=== PATIENT | female | born 1945 | race Caucasian/White ===

== ENCOUNTER 2017-06-06 05:26 | Inpatient (IN) | payer MEDICARE, BC ==
[2017-06-06 08:04] VITALS: RESP 18; TEMP 97.1; BMI 22.0
[2017-06-06 09:15] LABS: Anion Gap 11 mmol/L; Basophils # (A) 0.1 k/uL (0-0.2); Basophils % (A) 1 %; Blood Urea Nitrogen 9 mg/dL (7-17); CH 30.4; CHCM 33.9; Calcium 9.3 mg/dL (8.4-10.2); Carbon Dioxide 27 mmol/L (22-30); Chloride 103 mmol/L (98-107); Eosinophils % (A) 0 %; Glucose 155 mg/dL (74-99); HDW 2.34; HGB 14.4 gm/dL (11.4-16.0); Luc # (Auto) 0.21; Luc % (Auto) 2; Lymphocytes # (A) 1.1 k/uL (1.0-4.8); Lymphocytes % (A) 13 %; MCH 30.8 pg (25.0-35.0); MCHC 34.3 g/dL (31.0-37.0); MCV 89.9 fL (80.0-100.0); Mean Platelet Volume 7.8; Monocytes # (A) 0.4 k/uL (0-1.0); Monocytes % (A) 4 %; Neutrophils # (A) 6.8 k/uL (1.3-7.7); Neutrophils % (A) 80 %; Non-African American GFR(MDRD) >60 (>60 ml/min/1.73 sqM); Potassium 4.1 mmol/L (3.5-5.1); RBC 4.67 m/uL (3.80-5.40); RDW 11.9 % (11.5-15.5); Sodium 141 mmol/L (137-145); WBC 8.5 k/uL (3.8-10.6); WBC (Perox) 8.51
[2017-06-06] MEDS ORDERED: APIXABAN 5 MG TAB PO SCH (10:30)
[2017-06-06] MEDS ORDERED: METOPROLOL TARTRATE 25 MG TAB PO SCH ×2 (10:30→16:00)
[2017-06-06] MEDS ORDERED: amLODIPine 10 MG TAB PO SCH (10:30)
[2017-06-06] MEDS ORDERED: PANTOPRAZOLE 40 MG TABLET PO SCH ×2 (10:30→17:30)
[2017-06-06 10:59] VITALS: BP 132/64; PULSE 64
--- NOTE | 2017-06-06 12:04 | P.HPIM ---
History of Present Illness H&P Date: 06/06/17 (Discharge summary) Chief Complaint: Palpitations This is a 72-year-old female with history of atrial fibrillation currently maintained on ELIQUIS and beta angela for rate control come to the hospital with the sudden onset palpitations. Patient denies having any associated chest pain patient was transferred from [facility] at that time Patient spontaneously converted to normal sinus rhythm. Patient denies having any diarrhea recent change in diet medications prior to this episode Patient was last hospitalized about one year ago States that she sees Dr. Hatch denies having any history of heart failure has had a stress test over a year ago Patient is active denies having an intermittent episodes of palpitations in the last 1 year Patient was noted to have hypokalemia at [facility] today potassium is 4.1 Denies having any headaches blurry vision nausea vomiting diarrhea On ambulation patient's heart rate appropriately improved from 50 bpm to 70 bpm Appears to be normal sinus rhythm Review of Systems All systems: negative (Noted in HPI) Past Medical History Past Medical History: Atrial Fibrillation, GERD/Reflux, Hypertension Additional Past Medical History / Comment(s): perferated colon; anxiety; low sodium almost had seizure in [place] last july History of Any Multi-Drug Resistant Organisms: None Reported Additional Past Surgical History / Comment(s): bowel repair-perf colon Past Anesthesia/Blood Transfusion Reactions: Previous Problems w/ Anesthesia Additional Past Anesthesia/Blood Transfusion Reaction / Comment(s): difficulty waking up; problem bringing back when having colon surgery Past Psychological History: Anxiety Smoking Status: Never smoker - Past Family History Mother Additional Family Medical History / Comment(s): from [place] Father Family Medical History: Diabetes Mellitus Medications and Allergies Home Medications Medication Instructions Recorded Confirmed Type ALPRAZolam [Xanax] 0.25 mg PO BID PRN 06/06/17 06/06/17 History Apixaban [Eliquis] 5 mg PO BID 06/06/17 06/06/17 History Calcium Carbonate [Calcium] 600 mg PO BID 06/06/17 06/06/17 History Magnesium Oxide [Mag-Ox] 400 mg PO DAILY 06/06/17 06/06/17 History Metoprolol Tartrate 25 mg PO BID 06/06/17 06/06/17 History Multivitamins, Thera [Multivitamin 1 tab PO DAILY 06/06/17 06/06/17 History (formulary)] Omeprazole [PriLOSEC] 20 mg PO DAILY 06/06/17 06/06/17 History amLODIPine [Norvasc] 10 mg PO DAILY 06/06/17 06/06/17 History Allergies Allergy/AdvReac Type Severity Reaction Status Date / Time ciprofloxacin [From Cipro] Allergy Swelling Verified 06/06/17 09:57 sulfamethoxazole Allergy Swelling Verified 06/06/17 09:57 [From Bactrim] trimethoprim [From Bactrim] Allergy Swelling Verified 06/06/17 09:57 Physical Exam Vitals: Vital Signs Temp Pulse Resp BP Pulse Ox 06/06/17 10:58 97.1 F L 64 18 132/64 94 L 06/06/17 07:59 97.1 F L 61 18 140/63 96 06/06/17 07:45 97.1 F L 61 18 140/63 96 Intake and Output 06/05/17 06/06/17 06/06/17 22:59 06:59 14:59 Intake Total 360 Balance 360 Intake: Oral 360 Other: Weight 58.2 kg Patient Weight 06/07/17 06:59 Weight 58.2 kg Physical exam Gen. appearance oriented 3 in no distress Neck is supple no JVD Lungs good air entry clear to auscultation no rhonchi or wheezing Heart S1-S2 heard regular rate and rhythm no murmurs appreciated Abdomen is soft nontender no organomegaly bowel sounds are intact Neurologically cranial nerves II-12 grossly intact no focal motor or sensory deficits noted Skin no abnormalities appreciated Results CBC & Chem 7: 06/06/17 08:49 06/06/17 08:49 Labs: Abnormal Lab Results - Last 24 Hours (Table) 06/06/17 Range/Units 08:49 Glucose 155 H (74-99) mg/dL Thrombosis Risk Factor Assmnt - Choose All That Apply Each Risk Factor Represents 2 Points: Age 61-74 years Thrombosis Risk Factor Assessment Total Risk Factor Score: 2 Thrombosis Risk Factor Assessment Level: Low Risk Assessment and Plan Plan: #1 proximal atrial fibrillation known history with rapid ventricular rate present on admission #2 essential hypertension Plan Patient is currently in sinus rhythm patient will be discharged home to follow up with Dr. Hatch in 1 week patient may benefit from undergoing a stress test at that time if that is inciting event however patient did have hypokalemia prior to admission here. Patient was made to ambulate no recurrence of symptoms or chest pain and hence will be discharged home in a stable condition no change in medications.
--- NOTE | 2017-06-06 12:20 | P.CRDCN ---
History of Present Illness Consult date: 06/06/17 Reason for Consult (text): atrial fibrillation w/RVR Chief complaint: rapid, irregular heart beat History of present illness: This is a pleasant 72-year-old female patient who follows with Dr. Hatch in the office. She has history of episode of paroxysmal atrial fibrillation about a year ago, started on Eliquis at that time, GERD, hypertension and breast nodule. Presented to the emergency room department at [place] after waking up around 3 in the morning and noticing her heart racing and was irregular. Patient was found to be hypokalemic which was replaced at [facility]. He was found to be in atrial fibrillation with rapid ventricular response and started on a Cardizem drip. Just prior to arriving here at [facility] patient converted to sinus rhythm and shortly after rising Cardizem drip was discontinued. Patient is maintaining sinus rhythm. Her potassium has normalized at 4.1. All other labs are unremarkable except for a glucose of 155. She has been resumed on her home medications including Norvasc 10 mg by mouth daily,Eliquis 5 mg by mouth twice a day and metoprolol titrate 25 mg by mouth twice a day. Examination, she is resting comfortably in bed. She denies any complaints of palpitations or feeling her heart racing since arrival here. She's had no chest discomfort, dizziness, lightheadedness, diaphoresis or shortness of breath. Past Medical History Past Medical History: Atrial Fibrillation, GERD/Reflux, Hypertension Additional Past Medical History / Comment(s): perferated colon; anxiety; low sodium almost had seizure in [place] last july History of Any Multi-Drug Resistant Organisms: None Reported Additional Past Surgical History / Comment(s): bowel repair-perf colon Past Anesthesia/Blood Transfusion Reactions: Previous Problems w/ Anesthesia Additional Past Anesthesia/Blood Transfusion Reaction / Comment(s): difficulty waking up; problem bringing back when having colon surgery Past Psychological History: Anxiety Smoking Status: Never smoker - Past Family History Mother Additional Family Medical History / Comment(s): from [place] Father Family Medical History: Diabetes Mellitus Medications and Allergies Home Medications Medication Instructions Recorded Confirmed Type ALPRAZolam [Xanax] 0.25 mg PO BID PRN 06/06/17 06/06/17 History Apixaban [Eliquis] 5 mg PO BID 06/06/17 06/06/17 History Calcium Carbonate [Calcium] 600 mg PO BID 06/06/17 06/06/17 History Magnesium Oxide [Mag-Ox] 400 mg PO DAILY 06/06/17 06/06/17 History Metoprolol Tartrate 25 mg PO TID 06/06/17 06/06/17 History Multivitamins, Thera [Multivitamin 1 tab PO DAILY 06/06/17 06/06/17 History (formulary)] Omeprazole [PriLOSEC] 20 mg PO DAILY 06/06/17 06/06/17 History amLODIPine [Norvasc] 10 mg PO DAILY 06/06/17 06/06/17 History Allergies Allergy/AdvReac Type Severity Reaction Status Date / Time ciprofloxacin [From Cipro] Allergy Swelling Verified 06/06/17 09:57 sulfamethoxazole Allergy Swelling Verified 06/06/17 09:57 [From Bactrim] trimethoprim [From Bactrim] Allergy Swelling Verified 06/06/17 09:57 Physical Exam Vitals: Vital Signs Temp Pulse Resp BP Pulse Ox 06/06/17 10:58 97.1 F L 64 18 132/64 94 L 06/06/17 07:59 97.1 F L 61 18 140/63 96 06/06/17 07:45 97.1 F L 61 18 140/63 96 Intake and Output 06/05/17 06/06/17 06/06/17 22:59 06:59 14:59 Intake Total 360 Balance 360 Intake: Oral 360 Other: Weight 58.2 kg Patient Weight 06/07/17 06:59 Weight 58.2 kg PHYSICAL EXAMINATION: HEENT: Head is atraumatic, normocephalic. Pupils equal, round. Neck is supple. There is no elevated jugular venous pressure. HEART EXAMINATION: Heart sounds regular, S1 and S2 normal. No murmur or gallop heard. CHEST EXAMINATION: Lungs are clear to auscultation and precussion. No chest wall tenderness is noted on palpation or with deep breathing. ABDOMEN: Soft, nontender. Bowel sounds are heard. No organomegaly noted. EXTREMITIES: 2+ peripheral pulses with no evidence of peripheral edema and no calf tenderness noted. NEUROLOGIC patient is awake, alert and oriented x3. . Results 06/06/17 08:49 06/06/17 08:49 CBC 06/06/17 Range/Units 08:49 WBC 8.5 (3.8-10.6) k/uL RBC 4.67 (3.80-5.40) m/uL Hgb 14.4 (11.4-16.0) gm/dL Hct 42.0 (34.0-46.0) % Plt Count 273 (150-450) k/uL Comprehensive Metabolic Panel 06/06/17 Range/Units 08:49 Sodium 141 (137-145) mmol/L Potassium 4.1 (3.5-5.1) mmol/L Chloride 103 (98-107) mmol/L Carbon Dioxide 27 (22-30) mmol/L BUN 9 (7-17) mg/dL Creatinine 0.71 (0.52-1.04) mg/dL Glucose 155 H (74-99) mg/dL Calcium 9.3 (8.4-10.2) mg/dL Current Medications Generic Name Dose Route Start Last Admin Trade Name Freq PRN Reason Stop Dose Admin Amlodipine Besylate 10 mg 06/06/17 10:30 06/06/17 10:53 Norvasc PO 10 mg DAILY ASHLEY Administration Apixaban 5 mg 06/06/17 10:30 06/06/17 10:53 Eliquis PO 5 mg BID ASHLEY Administration Metoprolol Tartrate 25 mg 06/06/17 10:30 06/06/17 10:53 Lopressor PO 25 mg BID ASHLEY Administration Pantoprazole Sodium 40 mg 06/06/17 17:30 Protonix PO AC-SUPPER ASHLEY Intake and Output 06/05/17 06/06/17 06/06/17 22:59 06:59 14:59 Intake Total 360 Balance 360 Intake: Oral 360 Other: Weight 58.2 kg Patient Weight 06/07/17 06:59 Weight 58.2 kg 06/06/17 08:49 06/06/17 08:49 Assessment and Plan Plan: Assessment and plan #1 paroxysmal atrial fibrillation with rapid ventricular response, currently maintaining sinus rhythm #2 hypokalemia, resolved #3 hypertension #4 GERD From cardiology perspective, patient may be discharged home today she will follow-up with Dr. Hatch in [place] on June 12 at 1:45 PM. We will increase metoprolol to 25 mg by mouth 3 times a day. TARP REPAIRER note has been reviewed, I agree with a documented findings and plan of care. Patient was seen and examined.
== END 2017-06-06 13:16 | disposition home or self-care (01) | DRG 310 ==
LOC: 6SEL 07:54
PROVIDERS: ADMIT Hospitalist; ATTEND Hospitalist
DX: I48.0 Paroxysmal atrial fibrillation (principal); I10 Essential (primary) hypertension; E87.6 Hypokalemia; Z79.01 Long term (current) use of anticoagulants; Z79.899 Other long term (current) drug therapy; K21.9 Gastro-esophageal reflux disease without esophagitis; F41.9 Anxiety disorder, unspecified; Z88.1 Allergy status to other antibiotic agents; Z88.2 Allergy status to sulfonamides; Z88.8 Allergy status to other drugs, medicaments and biological substances
CPT/HCPCS: 80048; 83735; 85025

== ENCOUNTER 2023-05-19 12:32 | Inpatient (IN) | payer MEDICARE, BC ==
[2023-05-19] MEDS ORDERED: SODIUM CHLORIDE 0.9% 500 ML 500 ML IV STA (12:43)
[2023-05-19] MEDS ORDERED: DILTIAZEM 125 MG in SODIUM CHLORIDE 0.9% 100 ML IV SCH ×2 (13:00→14:32)
[2023-05-19] MEDS ORDERED: NALOXONE 0.4 MG/ML 1 ML VIAL IV PRN (13:05)
[2023-05-19 13:09] LABS: Basophils # (A) 0.1 k/uL (0-0.2); Basophils % (A) 1 %; Eosinophils # (A) 0.1 k/uL (0-0.7); Eosinophils % (A) 1 %; HCT 43.1 % (34.0-46.0); HGB 15.3 gm/dL (11.4-16.0); Lymphocytes # (A) 2.6 k/uL (1.0-4.8); Lymphocytes % (A) 34 %; MCH 32.3 pg (25.0-35.0); MCHC 35.5 g/dL (31.0-37.0); MCV 90.9 fL (80.0-100.0); Mean Platelet Volume 10.1; Monocytes # (A) 0.6 k/uL (0-1.0); Monocytes % (A) 8 %; Neutrophils # (A) 4.3 k/uL (1.3-7.7); Neutrophils % (A) 55 %; Platelet Count 172 k/uL (150-450); RBC 4.74 m/uL (3.80-5.40); RDW 11.5 % (11.5-15.5); WBC 7.8 k/uL (3.8-10.6)
--- NOTE | 2023-05-19 13:14 | ED ---
General Adult HPI - General Chief complaint: Chest Pain Stated complaint: AFib Time Seen by Provider: 05/19/23 12:41 Source: patient, EMS Mode of arrival: EMS - History of Present Illness Initial comments: This is a 78-year-old female that was sent in from [facility] emergency department for atrial fibrillation with RVR. The patient was noted that her palpitations started on Friday and became worse today so she went to the outside facility. The patient was found to be in atrial fibrillation with RVR and was started on a Cardizem drip and transferred here for further workup and evaluation by cardiology. On evaluation, the patient was resting in bed comfortably without any acute distress, shortness of breath or chest pain. - Related Data Home Medications Medication Instructions Recorded Confirmed ALPRAZolam [Xanax] 0.25 mg PO BID PRN 06/06/17 06/06/17 Apixaban [Eliquis] 5 mg PO BID 06/06/17 06/06/17 Calcium Carbonate [Calcium] 600 mg PO BID 06/06/17 06/06/17 Magnesium Oxide [Mag-Ox] 400 mg PO DAILY 06/06/17 06/06/17 Metoprolol Tartrate 25 mg PO TID 06/06/17 06/06/17 Multivitamins, Thera [Multivitamin 1 tab PO DAILY 06/06/17 06/06/17 (formulary)] Omeprazole [PriLOSEC] 20 mg PO DAILY 06/06/17 06/06/17 amLODIPine [Norvasc] 10 mg PO DAILY 06/06/17 06/06/17 Previous Rx's Medication Instructions Recorded Metoprolol Tartrate [Lopressor] 25 mg PO TID #270 tablet 06/06/17 Allergies Allergy/AdvReac Type Severity Reaction Status Date / Time ciprofloxacin [From Cipro] Allergy Swelling Verified 05/19/23 12:39 sulfamethoxazole Allergy Swelling Verified 05/19/23 12:39 [From Bactrim] trimethoprim [From Bactrim] Allergy Swelling Verified 05/19/23 12:39 Review of Systems ROS Statement: Those systems with pertinent positive or pertinent negative responses have been documented in the HPI. ROS Other: All systems not noted in ROS Statement are negative. Past Medical History Past Medical History: Atrial Fibrillation, GERD/Reflux, Hypertension Additional Past Medical History / Comment(s): perferated colon; anxiety; low sodium almost had seizure in [place] last july History of Any Multi-Drug Resistant Organisms: None Reported Additional Past Surgical History / Comment(s): bowel repair-perf colon Past Anesthesia/Blood Transfusion Reactions: Previous Problems w/ Anesthesia Additional Past Anesthesia/Blood Transfusion Reaction / Comment(s): difficulty waking up; problem bringing back when having colon surgery Past Psychological History: Anxiety - Past Family History Mother Additional Family Medical History / Comment(s): from [place] Father Family Medical History: Diabetes Mellitus General Exam Limitations: no limitations General appearance: alert, in no apparent distress Head exam: Present: atraumatic, normocephalic, normal inspection Eye exam: Present: normal appearance, PERRL Pupils: Present: normal accommodation ENT exam: Present: normal exam, normal oropharynx, mucous membranes moist Neck exam: Present: normal inspection, full ROM Respiratory exam: Present: normal lung sounds bilaterally Cardiovascular Exam: Present: tachycardia, irregular rhythm GI/Abdominal exam: Present: soft, normal bowel sounds Extremities exam: Present: normal inspection, full ROM Back exam: Present: normal inspection, full ROM Neurological exam: Present: alert, oriented X3, CN II-XII intact Psychiatric exam: Present: normal affect, normal mood Skin exam: Present: warm, dry Course Vital Signs 05/19/23 12:35 Temperature 98.1 F Pulse Rate 150 H Respiratory 20 Rate Blood Pressure 156/101 O2 Sat by Pulse 100 Oximetry EKG Findings - EKG Comments: EKG Findings:: An EKG was obtained and was interpreted by myself showing a rate of 115, QRS duration of 80, QTC of 392. This EKG showed an atrial fibrillation with RVR consistent with her previous history. There was however no ST segment elevation or depression noted. Medical Decision Making - Medical Decision Making Was pt. sent in by a medical professional or institution (, PA, BRAILLE DUPLICATING MACHINE OPERATOR, urgent care, hospital, or snf...) When possible be specific @ -Yes, [facility] Did you speak to anyone other than the patient for history (EMS, parent, family, police, friend...)? What history was obtained from this source @ -No Did you review nursing and triage notes (agree or disagree)? Why? @ -I reviewed and agree with nursing and triage notes Were old charts reviewed (outside hosp., previous admission, EMS record, old EKG, old radiological studies, urgent care reports/EKG's, snf records)? Report findings @ -Yes, the chart the outside facility was reviewed. Differential Diagnosis (chest pain, altered mental status, abdominal pain women, abdominal pain men, vaginal bleeding, weakness, fever, dyspnea, syncope, headache, dizziness, GI bleed, back pain, seizure, CVA, palpatations, mental health)? @ -Atrial fibrillation with RVR, ACS, pneumonia EKG interpreted by me (3pts min.). @ -As above X-rays interpreted by me (1pt min.). @ -None done CT interpreted by me (1pt min.). @ -None done U/S interpreted by me (1pt. min.). @ -None done What testing was considered but not performed or refused? (CT, X-rays, U/S, labs)? Why? @ -X-ray was performed at the outside facility. What meds were considered but not given or refused? Why? @ -None Did you discuss the management of the patient with other professionals (professionals i.e. , PA, BRAILLE DUPLICATING MACHINE OPERATOR, lab, RT, psych nurse, certified social workers in health care, lining cutter, teacher, environmental protection officer, correctional case manager)? Give summary @ -Yes, admitting physician was contacted regarding patient admission Was smoking cessation discussed for >3mins.? @ -No Was critical care preformed (if so, how long)? @ -Yes, see above Were there social determinants of health that impacted care today? How? (Homelessness, low income, unemployed, alcoholism, drug addiction, transportation, low edu. Level, literacy, decrease access to med. care, senior living, rehab)? @ -No Was there de-escalation of care discussed even if they declined (Discuss DNR or withdrawal of care, Hospice)? DNR status @ -No What co-morbidities impacted this encounter? (DM, HTN, Smoking, COPD, CAD, Cancer, CVA, ARF, Chemo, Hep., AIDS, mental health diagnosis, sleep apnea, morbid obesity)? @ -Atrial fibrillation Was patient admitted / discharged? Hospital course, mention meds given and route, prescriptions, significant lab abnormalities, going to OR and other pertinent info. @ -The patient was seen and evaluated emergency department. Physical exam, the patient was resting in bed without any acute distress. Vital signs did show atrial fibrillation with RVR and the patient was currently on Cardizem. The patient was restarted on Cardizem when she arrived and repeat labs were obtained. The patient remained stable and will be admitted for further workup and evaluation with cardiology on consult. The patient's primary care physician does not admit to this facility therefore the patient was admitted to Dr. Pool and SMOOTH who was city call. The patient was agreeable to this plan and was admitted in stable condition. Undiagnosed new problem with uncertain prognosis? @ -No Drug Therapy requiring intensive monitoring for toxicity (Heparin, Nitro, Insulin, Cardizem)? @ -Cardizem Were any procedures done? @ -No Diagnosis/symptom? @ -Atrial fibrillation with RVR Acute, or Chronic, or Acute on Chronic? @ -Acute Uncomplicated (without systemic symptoms) or Complicated (systemic symptoms)? @ -Complicated Side effects of treatment? @ -No Exacerbation, Progression, or Severe Exacerbation? @ -No Poses a threat to life or bodily function? How? (Chest pain, [place], [place], pneumonia, PE, COPD, DKA, ARF, appy, cholecystitis, CVA, Diverticulitis, Homicidal, Suicidal, threat to staff... and all critical care pts) @ -Yes, continued arrhythmia can lead to permanent damage and possible . Critical Care Time Critical Care Time: Yes Total Critical Care Time: 31 Disposition Clinical Impression: Atrial fibrillation with RVR Disposition: ADMITTED IP TO THIS [facility] Condition: Stable Is patient prescribed a controlled substance at d/c from ED?: No Referrals: Quentin Giordano MD [Primary Care Provider] - 1-2 days Time of Disposition: 13:00 Decision to Admit Reason: Admit from EC Decision Date: 05/19/23 Decision Time: 13:00
[2023-05-19] MEDS ORDERED: METOPROLOL TARTRATE 12.5 MG TAB PO SCH (14:06)
[2023-05-19 14:12] LABS: ALT 25 U/L (4-34); AST 30 U/L (14-36); African American GFR (CKD) >90 (>60 ml/min/1.73 sqM); Albumin 4.2 g/dL (3.5-5.0); Alkaline Phosphatase 87 U/L (38-126); Anion Gap 11 mmol/L; Blood Urea Nitrogen 12 mg/dL (7-17); Calcium 9.5 mg/dL (8.4-10.2); Carbon Dioxide 23 mmol/L (22-30); Chloride 105 mmol/L (98-107); Glucose 110 mg/dL (74-99); Magnesium 1.8 mg/dL (1.6-2.3); Non-African American GFR(CKD) 86 (>60 ml/min/1.73 sqM); Potassium 3.7 mmol/L (3.5-5.1); Sodium 139 mmol/L (137-145); Total Bilirubin 0.8 mg/dL (0.2-1.3); Total Protein 7.2 g/dL (6.3-8.2)
[2023-05-19 14:20] LABS: NT-Pro-B-Type Natriuretic Pept 2280 pg/mL
--- NOTE | 2023-05-19 14:25 | P.HPIM ---
History of Present Illness This is a pleasant 78 years old female with multiple past medical history including atrial fibrillation on a blood thinner at home, hypertension, anxiety Patient presents because of palpitation and lightheadedness since Friday She denies chest pain or dyspnea or coughing. Denies any GI or urinary symptoms. She has some loose stool about 3 times yesterday but she does not describe it as diarrhea. She denies headache dizziness weakness or numbness. No blurred vision. Her fifth hand is Dr. Hatch and she was taken her on liquids at home for her A. fib. She denies smoking alcohol or illicit drugs On admission she was tachycardic 150 CBC is unremarkable BMP and liver enzymes and troponin are unremarkable. ProBNP 2280. EKG showing A. fib with RVR at 115 Review of Systems Review of systems CONSTITUTIONAL: No fever, no malaise, no fatigue. HEENT: No recent visual problems or hearing problems. Denied any sore throat. CARDIOVASCULAR: No orthopnea, PND, no palpitations, no syncope. PULMONARY: No shortness of breath, no cough, no hemoptysis. GASTROINTESTINAL: No diarrhea, no nausea, no vomiting, no abdominal pain. Normoactive bowel sounds. NEUROLOGICAL: No headaches, no weakness, no numbness. HEMATOLOGICAL: Denies any bleeding or petechiae. GENITOURINARY: Denies any burning micturition, frequency, or urgency. MUSCULOSKELETAL/RHEUMATOLOGICAL: Denies any joint pain, swelling, or any muscle pain. ENDOCRINE: Denies any polyuria or polydipsia. Past Medical History Past Medical History: Atrial Fibrillation, GERD/Reflux, Hypertension Additional Past Medical History / Comment(s): perferated colon; anxiety; low sodium almost had seizure in [place] last july History of Any Multi-Drug Resistant Organisms: None Reported Additional Past Surgical History / Comment(s): bowel repair-perf colon Past Anesthesia/Blood Transfusion Reactions: Previous Problems w/ Anesthesia Additional Past Anesthesia/Blood Transfusion Reaction / Comment(s): difficulty waking up; problem bringing back when having colon surgery Past Psychological History: Anxiety - Past Family History Mother Additional Family Medical History / Comment(s): from [place] Father Family Medical History: Diabetes Mellitus Medications and Allergies Home Medications Medication Instructions Recorded Confirmed Type Apixaban [Eliquis] 5 mg PO BID 06/06/17 05/19/23 History amLODIPine [Norvasc] 10 mg PO DAILY 06/06/17 05/19/23 History Anastrozole [Arimidex] 1 mg PO DAILY 05/19/23 05/19/23 History Fluticasone Nasal [place] [Flonase 2 spray EA NOSTRIL DAILY PRN 05/19/23 05/19/23 History Nasal [place]] Metoprolol Tartrate [Lopressor] 37.5 mg PO BID 05/19/23 05/19/23 History Allergies Allergy/AdvReac Type Severity Reaction Status Date / Time ciprofloxacin [From Cipro] Allergy Swelling Verified 05/19/23 13:33 sulfamethoxazole Allergy Swelling Verified 05/19/23 13:33 [From Bactrim] trimethoprim [From Bactrim] Allergy Swelling Verified 05/19/23 13:33 Physical Exam Vitals: Vital Signs Temp Pulse Resp BP Pulse Ox 05/19/23 12:35 98.1 F 150 H 20 156/101 100 Intake and Output 05/18/23 05/19/23 05/19/23 22:59 06:59 14:59 Other: Weight 57.153 kg GENERAL: The patient is alert and oriented x3, not in any acute distress. Well developed, well nourished. HEENT: Pupils are round and equally reacting to light. EOMI. No scleral icterus. No conjunctival pallor. Normocephalic, atraumatic. No pharyngeal erythema. No thyromegaly. CARDIOVASCULAR: S1 and S2 present. No murmurs, rubs, or gallops. PULMONARY: Chest is clear to auscultation, no wheezing , no crackles. ABDOMEN: Soft, nontender, nondistended, normoactive bowel sounds. No palpable organomegaly. MUSCULOSKELETAL: No joint swelling or deformity. EXTREMITIES: No cyanosis, clubbing, or pedal edema. NEUROLOGICAL: Gross neurological examination did not reveal any focal deficits. SKIN: No rashes. no petechiae. Results CBC & Chem 7: 05/19/23 12:56 05/19/23 13:26 Assessment and Plan Assessment: Atrial fibrillation with RVR Hypertension History of GERD Anxiety Plan: Continue Cardizem drip Continue on eliquis Cardiology consult Labs and medication were reviewed.. Continue same treatment. Continue with symptomatic treatment. Resume home medication. Monitor labs and vitals. DVT and GI prophylaxis. Further recommendations as per clinical course of the patient DVT prophylaxis: eliquis GI Prophylaxis: Pepcid Prognosis is guarded
--- NOTE | 2023-05-19 14:35 | P.CRDCN ---
History of Present Illness Consult date: 05/19/23 Consult reason: atrial fibrillation (With RVR) History of present illness: History of present illness: This is a 69-year-old female patient Dr. Perez a past medical history of carotid atherosclerosis, paroxysmal atrial fibrillation, valvular heart disease as well as pulmonary hypertension, hypertension, dyslipidemia. Patient denies having any previous ablation or cardioversion done. She's been taking all of her medications as directed. She states she started feeling atrial fibrillation on Friday with palpitations and some dizziness. No shortness of breath. She thought that it would go away on its own as it has done in the past but co ntinued over the weekend it worsened on Friday. Patient went to a local hospital and was transferred to [facility]. She is currently on Cardizem drip at 5 mg. Patient is seen in the emergency center waiting for a bed on the cardiac stepdown unit. Blood pressure 156/101. EKG Atrial fibrillation on 115 bpm, telemetry atrial fibrillation 126-150 CBC normal. Electrolytes and renal function normal. Blood sugar 110. Troponin negative 1. ProBNP 2280. Magnesium 1.8. Liver function tests normal. Home cardiac medications: Amlodipine 10 mg daily, eliquis 5 mg twice daily, Lopressor 37.5 mg twice daily Review Of Systems: At the time of my evaluation: Constitutional: No fever, no chills. No weakness, fatigue or lethargy. EENT: No headache. No dizziness. Lungs: No shortness of breath, cough, no sputum production. No wheezing. Cardiovascular: No chest pain, no lower extremity edema. Reports palpitations. No paroxysmal nocturnal dyspnea. No orthopnea. Reports lightheadedness or dizz iness. No syncopal episodes. Abdominal: No abdominal pain. No nausea, vomiting. No diarrhea. No constipation. No bloody or tarry stools. Musculoskeletal: No myalgias. No muscle weakness, no frequent falls. No back pain. No neck pain. Integumentary: No wounds. No rash. No unusual bruising. Neurologic: No aphasia. No facial droop. No change in mentation. No head injury. No headache. Physical examination: Gen: This is a 78-year-old female. She is resting on ER stretcher and appears to be comfortable and in no acute distress. VS: reviewed HEENT: Head is atraumatic, normocephalic. Pupils equal, round. Sclerae is anicteric. NECK: Supple. No JVD. LUNGS: Clear to auscultation. No wheezes or rhonchi. No intercostal retractions. HEART: Irregular rate and rhythm. Systolic murmur. ABDOMEN: Soft No tenderness. EXTREMITIES: No pedal edema. No calf tenderness. NEUROLOGICAL: Patient is awake, alert and oriented x3. Assessment: Paroxysmal atrial fibrillation with RVR Valvular heart disease Pulmonary hypertension Hypertension Dyslipidemia Carotid atherosclerosis Plan: Continue Cardizem drip increased to 10 mg per hour Resume home cardiac medications and increase Lopressor to 50 mg twice daily Obtain 2-D echocardiogram and Doppler study to assess cardiac structure and function Further recommendations to follow based upon clinical course Thank you kindly for this consultation. Nurse practitioner note has been reviewed, I agree with documented findings and plan of care. Patient was seen and examined. Past Medical History Past Medical History: Atrial Fibrillation, GERD/Reflux, Hypertension Additional Past Medical History / Comment(s): perferated colon; anxiety; low sodium almost had seizure in [place] last july History of Any Multi-Drug Resistant Organisms: None Reported Additional Past Surgical History / Comment(s): bowel repair-perf colon Past Anesthesia/Blood Transfusion Reactions: Previous Problems w/ Anesthesia Additional Past Anesthesia/Blood Transfusion Reaction / Comment(s): difficulty waking up; problem bringing back when having colon surgery Past Psychological History: Anxiety - Past Family History Mother Additional Family Medical History / Comment(s): from [place] Father Family Medical History: Diabetes Mellitus Medications and Allergies Home Medications Medication Instructions Recorded Confirmed Type Apixaban [Eliquis] 5 mg PO BID 06/06/17 05/19/23 History amLODIPine [Norvasc] 10 mg PO DAILY 06/06/17 05/19/23 History Anastrozole [Arimidex] 1 mg PO DAILY 05/19/23 05/19/23 History Fluticasone Nasal [place] [Flonase 2 spray EA NOSTRIL DAILY PRN 05/19/23 05/19/23 History Nasal [place]] Metoprolol Tartrate [Lopressor] 37.5 mg PO BID 05/19/23 05/19/23 History Allergies Allergy/AdvReac Type Severity Reaction Status Date / Time ciprofloxacin [From Cipro] Allergy Swelling Verified 05/19/23 13:33 sulfamethoxazole Allergy Swelling Verified 05/19/23 13:33 [From Bactrim] trimethoprim [From Bactrim] Allergy Swelling Verified 05/19/23 13:33 Physical Exam Vitals: Vital Signs Temp Pulse Resp BP Pulse Ox 05/19/23 12:35 98.1 F 150 H 20 156/101 100 Intake and Output 05/18/23 05/19/23 05/19/23 22:59 06:59 14:59 Other: Weight 57.153 kg Results 05/19/23 12:56 05/19/23 13:26 Cardiac Enzymes 05/19/23 Range/Units 12:56 Troponin I <0.012 (0.000-0.034) ng/mL CBC 05/19/23 Range/Units 12:56 WBC 7.8 (3.8-10.6) k/uL RBC 4.74 (3.80-5.40) m/uL Hgb 15.3 (11.4-16.0) gm/dL Hct 43.1 (34.0-46.0) % Plt Count 172 (150-450) k/uL Current Medications Generic Name Dose Route Start Last Admin Trade Name Freq PRN Reason Stop Dose Admin Diltiazem HCl 125 mg/ Sodium 125 mls @ 5 mls/hr 05/19/23 13:00 05/19/23 13:09 Chloride IV 5 mg/hr .Q24H ASHLEY 5 mls/hr Administration Protocol 5 MG/HR Naloxone HCl 0.2 mg 05/19/23 13:05 Naloxone 0.4 Mg/Ml 1 Ml Vial IV Q2M PRN Opioid Reversal Intake and Output 05/18/23 05/19/23 05/19/23 22:59 06:59 14:59 Other: Weight 57.153 kg Patient Weight 05/20/23 06:59 Weight 57.153 kg 05/19/23 12:56
--- NOTE | 2023-05-19 14:42 | XR ---
EXAMINATION TYPE: XR chest 1V DATE OF EXAM: 05/19/2023 COMPARISON: NONE HISTORY: A. Fib TECHNIQUE: Single frontal view of the chest is obtained. FINDINGS: There is no focal air space opacity, pleural effusion, or pneumothorax seen. The cardiac silhouette size is within normal limits. The osseous structures are intact. Diffuse osteopenia. Art hropathy of the AC joints. Hypertrophic and degenerative changes spine. Metallic clips along the righ t lower lateral chest wall. Atherosclerotic change aorta. IMPRESSION: No acute process.
[2023-05-19] MEDS: amLODIPine 10 MG TAB PO SCH (15:02)
[2023-05-19] MEDS: METOPROLOL TARTRATE 50 MG TAB PO SCH ×2 (15:02→21:09)
[2023-05-19] MEDS: DILTIAZEM 125 MG in SODIUM CHLORIDE 0.9% 100 ML IV SCH (15:06)
[2023-05-19] MEDS: APIXABAN 5 MG TAB PO SCH (21:07)
[2023-05-19] MEDS: FAMOTIDINE 20 MG/2 ML VIAL IV SCH (21:10)
[2023-05-20] MEDS: DILTIAZEM 125 MG in SODIUM CHLORIDE 0.9% 100 ML IV SCH (02:23)
[2023-05-20] MEDS: FAMOTIDINE 20 MG/2 ML VIAL IV SCH (08:35)
[2023-05-20] MEDS: amLODIPine 10 MG TAB PO SCH (08:35)
[2023-05-20] MEDS: METOPROLOL TARTRATE 50 MG TAB PO SCH (08:35)
[2023-05-20] MEDS: APIXABAN 5 MG TAB PO SCH (08:35)
[2023-05-20] MEDS ORDERED: ANASTROZOLE 1 MG TAB PO SCH (09:00)
--- NOTE | 2023-05-20 09:22 | P.PN ---
Subjective Progress Note Date: 05/20/23 History of present illness: This is a 69-year-old female patient Dr. Perez a past medical history of carotid atherosclerosis, paroxysmal atrial fibrillation, valvular heart disease as well as pulmonary hypertension, hypertension, dyslipidemia. Patient denies having any previous ablation or cardioversion done. She's been taking all of her medications as directed. She states she started feeling atrial fibrillation on Friday with palpitations and some dizziness. No shortness of breath. She thought that it would go away on its own as it has done in the past but continued over the weekend it worsened on Friday. Patient went to a local hospital and was transferred to [facility]. She is currently on Cardizem drip at 5 mg. Patient is seen in the emergency center waiting for a bed on the cardiac stepdown unit. Blood pressure 156/101. EKG Atrial fibrillation on 115 bpm, telemetry atrial fibrillation 126-150 CBC normal. Electrolytes and renal function normal. Blood sugar 110. Troponin negative 1. ProBNP 2280. Magnesium 1.8. Liver function tests normal. Home cardiac medications: Amlodipine 10 mg daily, eliquis 5 mg twice daily, Lopressor 37.5 mg twice daily 05/20 Patient has converted to sinus rhythm. She denies any palpitations, chest pain, lightheadedness. Blood pressures 125/87. Heart rate between 48 and 71. Physical examination: Gen: This is a 78-year-old female. She is resting on ER stretcher and appears to be comfortable and in no acute distress. VS: reviewed HEENT: Head is atraumatic, normocephalic. Pupils equal, round. Sclerae is anicteric. NECK: Supple. No JVD. LUNGS: Clear to auscultation. No wheezes or rhonchi. No intercostal retractions. HEART: Irregular rate and rhythm. Systolic murmur. ABDOMEN: Soft No tenderness. EXTREMITIES: No pedal edema. No calf tenderness. NEUROLOGICAL: Patient is awake, alert and oriented x3. Assessment: Paroxysmal atrial fibrillation with RVR Valvular heart disease Pulmonary hypertension Hypertension Dyslipidemia Carotid atherosclerosis Plan: Continue home cardiac medications and increase Lopressor to 50 mg twice daily Patient is cleared from cardiology for discharge by follow-up with Dr. Perez in one week. Nurse practitioner note has been reviewed, I agree with documented findings and plan of care. Patient was seen and examined. Objective - Vital Signs Vital signs: Vital Signs Temp 98.0 F 05/19/23 16:01 Pulse 48 L 05/20/23 05:54 Resp 16 05/20/23 04:00 BP 125/87 05/20/23 04:00 Pulse Ox 97 05/20/23 04:00 FiO2 Intake & Output 05/19/23 05/20/23 05/20/23 18:59 06:59 18:59 Intake Total 144.749 Balance 144.749 Weight 57.153 kg Intake: Intake, IV Titration 144.749 Amount Diltiazem 125 mg In 144.749 Sodium Chloride 0.9% 100 ml @ 10 MG/HR 10 mls/hr IV .[id number] [facility] Rx#: [id number] - Labs CBC & Chem 7: 05/19/23 12:56 05/19/23 13:26 Labs: Abnormal Lab Results - Last 24 Hours (Table) 05/19/23 Range/Units 13:26 Glucose 110 H (74-99) mg/dL
[2023-05-20 10:28] VITALS: BP 153/73; PULSE 57; RESP 18; TEMP 97.3
--- NOTE | 2023-05-20 22:20 | P.DS ---
Providers Date of admission: 05/19/23 13:05 Attending physician: Maximino Pool MD Consults: 05/19/23 13:05 Consult Physician Routine Consulting Provider: [facility] Consult Reason/Comments: A fib with RVR Do you want consulting provider notified?: Yes, Notify in am Primary care physician: Quentin Giordano MD Hospital Course: Diagnoses: Atrial fibrillation with RVR Hypertension History of GERD Anxiety Hospital course: This is a pleasant 78 years old female with multiple past medical history including atrial fibrillation on a blood thinner at home, hypertension, anxiety Patient presents because of palpitation and lightheadedness since Friday. Patient found to have A. fib and RVR. Award Machine Operator evaluated the patient. Metoprolol 37.5 mg increase to 50 mg twice a day. Patient's symptoms improved. She is back to baseline. Patient was eager to go home today. Patient was cleared for discharge by data conversion developer Problems and management plan were discussed with the patient and he verbalized understanding and acceptance Patient was found stable and can be discharged home in guarded prognosis however he needs follow-up as an outpatient. Patient was instructed to follow up with Niko Giordano within one week and patient agrees Patient was instructed to follow up with Dr. Perez in one week and she agrees. Physical exam Gen: patient is a AAOx3, no distress CVS: S1-S2, RRR, no murmur Lungs: B/L CTA, no wheezing Abdomen: soft, no distention, no tenderness, positive bowel sounds Extremity: no leg edema or induration Time spent more than 35 minutes Patient Condition at Discharge: Stable Plan - Discharge Summary New Discharge Prescriptions: New Metoprolol Tartrate [Lopressor] 50 mg PO BID #60 tab Continue Apixaban [Eliquis] 5 mg PO BID amLODIPine [Norvasc] 10 mg PO DAILY Fluticasone Nasal [place] [Flonase Nasal [place]] 2 spray EA NOSTRIL DAILY PRN PRN Reason: Allergy Symptoms Anastrozole [Arimidex] 1 mg PO DAILY Discontinued Metoprolol Tartrate [Lopressor] 37.5 mg PO BID Discharge Medication List Apixaban [Eliquis] 5 mg PO BID 06/06/17 [History] amLODIPine [Norvasc] 10 mg PO DAILY 06/06/17 [History] Anastrozole [Arimidex] 1 mg PO DAILY 05/19/23 [History] Fluticasone Nasal [place] [Flonase Nasal [place]] 2 spray EA NOSTRIL DAILY PRN 05/19/23 [History] Metoprolol Tartrate [Lopressor] 50 mg PO BID #60 tab 05/20/23 [Rx] Follow up Appointment(s)/Referral(s): Eric Perez MD [STAFF PHYSICIAN] - 1 Week Quentin Giordano MD [Primary Care Provider] - 1-2 days Patient Instructions/Handouts: A-fib (Atrial Fibrillation) (DC) Activity/Diet/Wound Care/Special Instructions: Heart healthy diet activity is restricted till you see your doctor Discharge Disposition: HOME SELF-CARE
== END 2023-05-20 11:17 | disposition home or self-care (01) | DRG 310 ==
LOC: EC 12:32 → 3SCARD 13:05
PROVIDERS: ADMIT Internal Medicine; ATTEND Internal Medicine
DX: I48.0 Paroxysmal atrial fibrillation (principal); E78.5 Hyperlipidemia, unspecified; I27.29 Other secondary pulmonary hypertension; I10 Essential (primary) hypertension; F41.9 Anxiety disorder, unspecified; I27.20 Pulmonary hypertension, unspecified; I65.29 Occlusion and stenosis of unspecified carotid artery; Z79.01 Long term (current) use of anticoagulants; Z79.811 Long term (current) use of aromatase inhibitors; Z79.899 Other long term (current) drug therapy; Z88.1 Allergy status to other antibiotic agents; Z88.2 Allergy status to sulfonamides
CPT/HCPCS: 36415; 71045; 80053; 83735; 83880; 84484; 85025; 93005; 96365; 96366; 96375; 99291